=== PATIENT | female | born 1945 | race Hispanic/Latino ===

== ENCOUNTER 2016-04-04 08:08 | Day surgery (SDC) | payer MEDICARE ==
[~2016-04-04] VITALS: Ht 154.9 cm; Wt 73.0 kg
[~2016-04-04 08:08] MED LIST: AMLO10TA3 PO; ASPI-973 PO; CLOB15CR3 TOP; FERR325C PO; GABA600T2 PO; INSU100I SUBQ; LOSA100T29 PO; METF1000 PO; NORT25CA PO; NPH,100V10 SUBQ; OXYB5TAB PO; PANT40TA3 PO; RANI300C PO; SIMV40TA5 PO; Sodium Chloride LOK Flush 10 mL Syringe IV PRN; fentaNYL-PF 50 mCg/mL 2 mL Inj IVPUSH PRN
[2016-04-04] MEDS ORDERED: 0.9% Sodium Chloride 1,000 ML ONE (08:18)
[2016-04-04 08:38] VITALS: BP 127/56; PULSE 73; RESP 16; O2SAT 97
[2016-04-04 09:09] VITALS: BP 100/69; PULSE 68; RESP 14; O2SAT 92
--- NOTE | 2016-04-04 09:16 | ENDO ---
[address] [address] ENDOSCOPY PROCEDURE PATIENT: COLLEEN BAUER : 1945 MR#: [id number] ADMIT: 04/04/2016 JOB ID: [id number] DATE OF SERVICE: 04/04/2016 TYPE OF OPERATION: Esophagogastroduodenoscopy with biopsy. PREOPERATIVE DIAGNOSIS(ES): 1. Epigastric pain. 2. Iron deficiency anemia. POSTOPERATIVE DIAGNOSIS(ES): Mild nonerosive gastritis. ANESTHESIA: Fentanyl 75 mcg and Versed 3 mg IV administered. COMPLICATIONS: None. BLOOD LOSS: Minimal. DESCRIPTION OF PROCEDURE: After risks and benefits explained to the patient, informed consent was obtained. After anesthesia administered, upper endoscope was then inserted into the mouth, intubating the esophagus, stomach, second portion of duodenum, and mucosa carefully. After the procedure was done, the scope withdrawn and procedure terminated. FINDINGS: Upon inspection of the esophagus, the esophagus was normal without masses, ulcers, or lesions. Z-line located 35 cm from incisors. Upon entering the stomach, there was mild nonerosive gastritis that was seen. No masses or ulcers were seen. Retroflexion normal. Duodenal bulb, first and second portions were normal. Biopsies taken of antrum and body of stomach. IMPRESSIONS: Mild nonerosive gastritis. RECOMMENDATION: Await pathology results. Follow up in GI clinic as needed.
[2016-04-04 09:27] VITALS: BP 115/66; PULSE 68; RESP 12; O2SAT 96
[2016-04-04 09:31] VITALS: BP 124/71; PULSE 79; RESP 14; O2SAT 96
--- NOTE | 2016-04-07 11:24 | PATH ---
SURGICAL PATHOLOGY Attending Physician:Rocco Salmon MD CASE STATUS: Signed Out PATIENT NAME: COLLEEN BAUER PID: [id number] : 1945 DATE COLLECTED:04/04/2016 15:17 SPECIMEN: 1: Duodenum, Biopsy 2: Gastric, Biopsy 3: Gastric, Biopsy CLINICAL HISTORY: 1: DUODENUM 2: GASTRIC ANTRUM 3: GASTRIC BODY FINAL DIAGNOSIS: 1.DUODENAL BIOPSY: FRAGMENTS OF NORMAL-APPEARING SMALL BOWEL MUCOSA. Normal delicate mucosal villi present. Negative for significant inflammation, dysplasia and malignancy. 2.GASTRIC ANTRUM BIOPSY: MILD CHRONIC GASTRITIS INVOLVING ANTRAL MUCOSA. Negative for evidence of Helicobacter. Negative for intestinal metaplasia. Negative for dysplasia and malignancy. 3.GASTRIC BODY BIOPSIES: MILD CHRONIC GASTRITIS INVOLVING FUNDIC MUCOSA. Negative for evidence of Helicobacter. Negative for intestinal metaplasia. Negative for dysplasia and malignancy. ICD10 code K29.70 GROSS DESCRIPTION: The specimen is received in three formalin filled containers labeled with the patient's name. 1). The specimen is sublabeled "duodenum" and consists of 2 portions of tissue which aggregate to 0.3 x 0.3 x 0.2 CM. The specimen is entirely submitted in cassette 1A. 2). The specimen is sublabeled "gastric antrum" and consists of a 0.3 x 0.3 x 0.3 CM portion of tissue which is entirely submitted in cassette 2A. 3). The specimen is sublabeled "gastric body" and consists of a 0.3 x 0.3 x 0.3 CM portion of tissue which is entirely submitted in cassette 3A. 04/04/2016 MICRO DESCRIPTION: See diagnosis. ICD-9 CODES: CPT CODES: 1: 45606 2: 09086 3: 46225 Electronically Signed Out Lucas Vann MD [facility] Pathology [facility] [address] [facility] [place] [address] Technical component performed at [facility], [facility] [address], [address]
== END 2016-04-04 23:59 | disposition home or self-care (01) ==
LOC: END 08:08
PROVIDERS: ATTEND Internal Medicine Gastroenterology
DX: K29.50 Unspecified chronic gastritis without bleeding (principal); D50.9 Iron deficiency anemia, unspecified; E11.22 Type 2 diabetes mellitus with diabetic chronic kidney disease; N18.2 Chronic kidney disease, stage 2 (mild); E66.9 Obesity, unspecified; Z68.30 Body mass index [BMI] 30.0-30.9, adult; M79.7 Fibromyalgia; Z79.84 Long term (current) use of oral hypoglycemic drugs; Z79.4 Long term (current) use of insulin
CPT/HCPCS: 43239; G0500; J2250; J3010; J7030